=== PATIENT | female | born 1985 | race Caucasian/White ===

== ENCOUNTER 2018-08-23 11:53 | Inpatient (IN) | payer BC ==
[2018-08-23] MEDS ORDERED: Nalbuphine 20 MG/ML 1 ML Syringe IVPUSH PRN (12:20)
[2018-08-23] MEDS ORDERED: Sodium Chloride 0.9% 10 ML Syringe FLUSH PRN (12:20)
[2018-08-23] MEDS ORDERED: Oxytocin/Lactated Ringers 10 UNIT/1,000 ML BAG IV SCH ×2 (12:30)
[2018-08-23] MEDS: Lactated Ringers 1,000 ML IV SCH ×2 (13:35→18:15)
[2018-08-23] MEDS ORDERED: ePHEDrine 50 MG/ML SDV IVPUSH PRN (15:35)
[2018-08-23] MEDS ORDERED: Ondansetron 4 MG/2 ML SDV IVPUSH PRN (15:35)
--- NOTE | 2018-08-23 15:39 | PCM.PREANE ---
Preanesthetic Assessment - Anesthesia/Transfusion/Family Hx Anesthesia History: Prior Anesthesia Without Reaction Family History of Anesthesia Reaction: No Transfusion History: No Prior Transfusion(s) Intubation History: Unknown - Review of Systems General: No Symptoms Pulmonary: No Symptoms Cardiovascular: No Symptoms Gastrointestinal: No Symptoms Neurological: No Symptoms, Numbness (bilateral arms when sleeping with ) Other: Reports: None - Physical Assessment NPO Status Date: 08/23/18 NPO Status Time: 13:00 Pulse: 97 O2 Sat by Pulse Oximetry: 100 Respiratory Rate: 16 Blood Pressure: 133/77 Temperature: 36.8 C Vital Signs: Last Vital Signs Temp 36.8 C 08/23/18 12:20 Pulse 97 08/23/18 12:20 Resp 16 08/23/18 12:20 BP 133/77 08/23/18 12:20 Pulse Ox 100 08/23/18 12:20 Height: 1.63 m Weight: 101.151 kg ASA Class: 2 Mental Status: Alert & Oriented x3 Airway Class: Mallampati = 2 Dentition: Reports: Normal Dentition, Caries Thyro-Mental Finger Breadths: 3 Mouth Opening Finger Breadths: 3 ROM/Head Extension: Full Lungs: Clear to Auscultation, Normal Respiratory Effort Cardiovascular: Regular Rate, Regular Rhythm, No Murmurs - Lab Values: Laboratory Last Values WBC 12.99 K/mm3 (3.98-10.04) H 08/23/18 13:10 RBC 3.45 M/mm3 (3.98-5.22) L 08/23/18 13:10 Hgb 10.3 gm/L (11.2-15.7) L 08/23/18 13:10 Hct 30.5 % (34.1-44.9) L 08/23/18 13:10 MCV 88.4 fl (79.4-94.8) 08/23/18 13:10 MCH 29.9 pg (25.6-32.2) 08/23/18 13:10 MCHC 33.8 g/dl (32.2-35.5) 08/23/18 13:10 RDW Std Deviation 65.6 fL (36.4-46.3) H 08/23/18 13:10 Plt Count 222 K/mm3 (182-369) 08/23/18 13:10 MPV 9.3 fl (9.4-12.3) L 08/23/18 13:10 Neut % (Auto) 76.4 % (34.0-71.1) H 08/23/18 13:10 Lymph % (Auto) 14.6 % (19.3-51.7) L 08/23/18 13:10 [place] % (Auto) 7.2 % (4.7-12.5) 08/23/18 13:10 Eos % (Auto) 1.1 (0.7-5.8) 08/23/18 13:10 Baso % (Auto) 0.2 % (0.1-1.2) 08/23/18 13:10 Neut # (Auto) 9.92 K/mm3 (1.56-6.13) H 08/23/18 13:10 Lymph # (Auto) 1.90 K/mm3 (1.18-3.74) 08/23/18 13:10 [place] # (Auto) 0.93 K/mm3 (0.24-0.36) H 08/23/18 13:10 Eos # (Auto) 0.14 K/mm3 (0.04-0.36) 08/23/18 13:10 Baso # (Auto) 0.03 K/mm3 (0.01-0.08) 08/23/18 13:10 Manual Slide Review Normal smear 08/23/18 13:10 Above lab values reviewed and noted and within acceptable ranges to proceed with epidural of desired. 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 USE Smoking Status *Q: Never Smoker Tobacco Use Within Last Twelve Months: No Second Hand Smoke Exposure: No Recreational Drug Use History: No - CURRENT (IN HOUSE) MEDS Current Meds: Current Medications Lactated Ringer's (Ringers, Lactated) 1,000 mls @ 100 mls/hr IV ASDIRECTED MARCELINO Last Admin: 08/23/18 13:35 Dose: 100 mls/hr Oxytocin/Lactated Ringer's (Pitocin In Lr 10 Units/1,000 Ml) 10 unit in 1,000 mls @ 12 mls/hr IV TITRATE MARCELINO; Protocol Last Admin: 08/23/18 13:35 Dose: 2 munits/min, 12 mls/hr Oxytocin/Lactated Ringer's (Pitocin In Lr 10 Units/1,000 Ml) 10 unit in 1,000 mls @ 500 mls/hr IV .CONTINUOUS MARCELINO Nalbuphine HCl (Nubain) 10 mg IVPUSH Q2H PRN PRN Reason: pain Sodium Chloride (Saline Flush) 10 ml FLUSH ASDIRECTED PRN PRN Reason: Keep Vein Open
[2018-08-23] MEDS: Bupivacaine/fentaNYL/NS 100 ML Bag EPIDUR SCH ×2 (15:59→22:55)
[2018-08-23] MEDS: fentaNYL 100 MCG/2 ML SDV EPIDUR PRN (16:01)
[2018-08-24] MEDS: Oxytocin/Lactated Ringers 20 UNIT/1,000 ML BAG IV SCH ×2 (03:57→16:07)
--- NOTE | 2018-08-24 08:36 | PCM.SN ---
- Free Text/Narrative Note: 0800 called to room to assess epidural. Clamp at top of epidural tubing and medication bag tubing wet. Clamp switched out with a new one. Dressing on patients back removed and replaced with new dressing. Bolus of 10ml 0.25% bupivacaine PF given. VSS All done under sterile technique. Out of room at 0827.
[2018-08-24] MEDS: Lactated Ringers 1,000 ML IV SCH ×3 (08:37→13:14)
[2018-08-24] MEDS: Bupivacaine/fentaNYL/NS 100 ML Bag EPIDUR SCH (08:38)
[2018-08-24] MEDS ORDERED: Bupivacaine 0.25% 10 ML SDV ONE (09:00)
[2018-08-24] MEDS: fentaNYL 100 MCG/2 ML SDV EPIDUR PRN (12:36)
--- NOTE | 2018-08-24 12:42 | PCM.SN ---
- Free Text/Narrative Note: Called to patient room at 1220 complains of pain 10/10 bolus epidural with 2ml fentanyl 10 ml .25% bupivacaine PF VSS out of room at 1240
--- NOTE | 2018-08-24 16:32 | PCM.LDHP ---
L&D History of Present Illness - General Date of Service: 08/23/18 Admit Problem/Dx: Patient Status Order with Admit Dx/Problem 08/23/18 12:00 Patient Status [ADT] Routine Admission Diagnosis/Problem Admission Diagnosis/Problem Source of Information: Patient History Limitations: Reports: No Limitations - History of Present Illness Introduction:: 32 year old female here for SROM. Prior . 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: Social & Family History - Family History Family Medical History: Noncontributory - Tobacco Use Smoking Status *Q: Never Smoker Second Hand Smoke Exposure: No - Caffeine Use Caffeine Use: Reports: None - Recreational Drug Use Recreational Drug Use: No H&P Review of Systems - Review of Systems: Review Of Systems: See Below General: Reports: No Symptoms HEENT: Reports: No Symptoms Pulmonary: Reports: No Symptoms Cardiovascular: Reports: No Symptoms Gastrointestinal: Reports: No Symptoms Genitourinary: Reports: No Symptoms Musculoskeletal: Reports: No Symptoms Skin: Reports: No Symptoms Psychiatric: Reports: No Symptoms Neurological: Reports: No Symptoms Hematologic/Lymphatic: Reports: No Symptoms Immunologic: Reports: No Symptoms L&D Exam - Exam Exam: See Below - Vital Signs Vital Signs: Last Vital Signs Temp 36.8 C 08/23/18 15:49 Pulse 97 08/23/18 15:49 Resp 16 08/23/18 15:49 BP 133/77 08/23/18 15:49 Pulse Ox 100 08/23/18 15:49 Weight: 101.151 kg - OB Specific Contraction Intensity: Moderate Movement: Active Heart Tones: Present Heart Rate (FHR) Variability: Moderate (6-25 bmp) Presentation: Vertex - Yu Score Yu Score Cervix Position: Midposition Yu Score Consistency: Medium Yu Score Effacement: 51-70% Yu Score Dilation: 1-2 cm Yu Score 's Station: -1 ,0 Yu Score Total: 7 - Exam General: Alert, Oriented HEENT: PERRLA, Conjunctiva Clear, EACs Clear, EOMI, Hearing Intact, Mucosa Moist & [place], Nares Patent, Normal Nasal Septum, Posterior Pharynx Clear, TMs Clear Neck: Supple, Trachea Midline Lungs: Clear to Auscultation, Normal Respiratory Effort Cardiovascular: Regular Rate, Regular Rhythm GI/Abdominal Exam: Normal Bowel Sounds, Soft, Non-Tender, No Organomegaly, No Distention, No Abnormal Bruit, No Mass, Pelvis Stable Rectal Exam: Normal Exam, Normal Rectal Tone Genitourinary: Normal external exam, Normal bimanual exam, Normal speculum exam Back Exam: Normal Inspection, Full Range of Motion Extremities: Normal Inspection, Normal Range of Motion, Non-Tender, No Pedal Edema, Normal Capillary Refill Skin: Warm, Dry, Intact Neurological: Cranial Nerves Intact, Reflexes Equal Bilateral Psychiatric: Alert, Normal Affect, Normal Mood - Patient Data Lab Results Last 24 hrs: Laboratory Results - last 24 hr 08/23/18 08/23/18 Range/Units 13:10 13:10 RPR Non-reactive (NONREACTIVE) Blood Type O POSITIVE Gel Antibody Screen Negative Result Diagrams: 08/23/18 13:10 Problem List Initiated/Reviewed/Updated: Yes Orders Last 24hrs: Active Orders 24 hr Category Date Time Status Notify Provider [RC] ASDIRECTED Care 08/23/18 15:35 Active Oxygen Therapy [RC] ASDIRECTED Care 08/23/18 15:35 Active Pulse Oximetry [RC] ASDIRECTED Care 08/23/18 15:35 Active Bupivacaine/fentaNYL/NS [fentaNYL/Bupivacaine/NS 2 MCG- Med 08/23/18 15:45 Active 0.125% 100 ML] 100 ml EPIDUR ASDIRECTED Ondansetron [Zofran] Med 08/23/18 15:35 Active 4 mg IVPUSH ONETIME PRN Oxytocin/Lactated Ringers [Pitocin in LR 20 Units/1,000 Med 08/24/18 04:00 Active ML] 20 unit in 1,000 ml IV TITRATE ePHEDrine [ePHEDrine sulfate] Med 08/23/18 15:35 Active 5 mg IVPUSH ASDIRECTED PRN fentaNYL [Sublimaze] Med 08/23/18 15:35 Active 100 mcg EPIDUR Q3H PRN Medication Orders Ephedrine Sulfate (Ephedrine Sulfate) 5 mg IVPUSH ASDIRECTED PRN PRN Reason: Hypotension Fentanyl (Sublimaze) 100 mcg EPIDUR Q3H PRN PRN Reason: Pain Last Admin: 08/24/18 12:36 Dose: 100 mcg Admin: 08/23/18 16:01 Dose: 100 mcg Fentanyl/Bupivacaine HCl (Fentanyl/Bupivacaine/Ns 2 Mcg-0.125% 100 Ml) 100 ml EPIDUR ASDIRECTED MARCELINO Last Admin: 08/24/18 08:38 Dose: 100 ml Admin: 08/23/18 22:55 Dose: 100 ml Admin: 08/23/18 15:59 Dose: 100 ml Lactated Ringer's (Ringers, Lactated) 1,000 mls @ 100 mls/hr IV ASDIRECTED MARCELINO Last Admin: 08/24/18 13:14 Dose: 100 mls/hr Infusion: 08/24/18 13:14 Dose: 100 mls/hr Admin: 08/24/18 12:39 Dose: 100 mls/hr Infusion: 08/24/18 12:39 Dose: 100 mls/hr Admin: 08/24/18 08:37 Dose: 100 mls/hr Infusion: 08/24/18 04:15 Dose: 100 mls/hr Admin: 08/23/18 18:15 Dose: 100 mls/hr Infusion: 08/23/18 18:15 Dose: 100 mls/hr Admin: 08/23/18 13:35 Dose: 100 mls/hr Oxytocin/Lactated Ringer's (Pitocin In Lr 10 Units/1,000 Ml) 10 unit in 1,000 mls @ 12 mls/hr IV TITRATE MARCELINO; Protocol Last Titration: 08/24/18 03:15 Dose: 24 munits/min, 144 mls/hr Titration: 08/24/18 02:30 Dose: 22 munits/min, 132 mls/hr Titration: 08/24/18 02:00 Dose: 20 munits/min, 120 mls/hr Titration: 08/24/18 01:32 Dose: 18 munits/min, 108 mls/hr Titration: 08/24/18 00:00 Dose: 17 munits/min, 102 mls/hr Titration: 08/23/18 23:30 Dose: 16 munits/min, 96 mls/hr Titration: 08/23/18 22:56 Dose: 15 munits/min, 90 mls/hr Titration: 08/23/18 22:15 Dose: 14 munits/min, 84 mls/hr Titration: 08/23/18 21:30 Dose: 13 munits/min, 78 mls/hr Titration: 08/23/18 19:50 Dose: 11 munits/min, 66 mls/hr Titration: 08/23/18 19:09 Dose: 10 munits/min, 60 mls/hr Titration: 08/23/18 18:16 Dose: 8 munits/min, 48 mls/hr Titration: 08/23/18 17:30 Dose: 6 munits/min, 36 mls/hr Titration: 08/23/18 16:30 Dose: 4 munits/min, 24 mls/hr Admin: 08/23/18 13:35 Dose: 2 munits/min, 12 mls/hr Oxytocin/Lactated Ringer's (Pitocin In Lr 10 Units/1,000 Ml) 10 unit in 1,000 mls @ 500 mls/hr IV .CONTINUOUS MARCELINO Oxytocin/Lactated Ringer's (Pitocin In Lr 20 Units/1,000 Ml) 20 unit in 1,000 mls @ 60 mls/hr IV TITRATE MARCELINO; Protocol Last Admin: 08/24/18 03:57 Dose: 60 mls/hr Nalbuphine HCl (Nubain) 10 mg IVPUSH Q2H PRN PRN Reason: pain Ondansetron HCl (Zofran) 4 mg IVPUSH ONETIME PRN PRN Reason: Nausea/Vomiting Last Admin: 08/24/18 10:12 Dose: 4 mg Sodium Chloride (Saline Flush) 10 ml FLUSH ASDIRECTED PRN PRN Reason: Keep Vein Open Assessment/Plan Comment:: 32 year old female here for TOLAC Understands risk.
--- NOTE | 2018-08-24 16:34 | PCM.PNLD ---
Labor Progress Note - VS & Meds Vital Signs: Last Vital Signs Temp 36.8 C 08/23/18 15:49 Pulse 97 08/23/18 15:49 Resp 16 08/23/18 15:49 BP 133/77 08/23/18 15:49 Pulse Ox 100 08/23/18 15:49 Active Medications: Current Medications Ephedrine Sulfate (Ephedrine Sulfate) 5 mg IVPUSH ASDIRECTED PRN PRN Reason: Hypotension Fentanyl (Sublimaze) 100 mcg EPIDUR Q3H PRN PRN Reason: Pain Last Admin: 08/24/18 12:36 Dose: 100 mcg Fentanyl/Bupivacaine HCl (Fentanyl/Bupivacaine/Ns 2 Mcg-0.125% 100 Ml) 100 ml EPIDUR ASDIRECTED MARCELINO Last Admin: 08/24/18 08:38 Dose: 100 ml Lactated Ringer's (Ringers, Lactated) 1,000 mls @ 100 mls/hr IV ASDIRECTED MARCELINO Last Admin: 08/24/18 13:14 Dose: 100 mls/hr Oxytocin/Lactated Ringer's (Pitocin In Lr 10 Units/1,000 Ml) 10 unit in 1,000 mls @ 12 mls/hr IV TITRATE MARCELINO; Protocol Last Titration: 08/24/18 03:15 Dose: 24 munits/min, 144 mls/hr Oxytocin/Lactated Ringer's (Pitocin In Lr 10 Units/1,000 Ml) 10 unit in 1,000 mls @ 500 mls/hr IV .CONTINUOUS MARCELINO Oxytocin/Lactated Ringer's (Pitocin In Lr 20 Units/1,000 Ml) 20 unit in 1,000 mls @ 60 mls/hr IV TITRATE MARCELINO; Protocol Last Admin: 08/24/18 03:57 Dose: 60 mls/hr Nalbuphine HCl (Nubain) 10 mg IVPUSH Q2H PRN PRN Reason: pain Ondansetron HCl (Zofran) 4 mg IVPUSH ONETIME PRN PRN Reason: Nausea/Vomiting Last Admin: 08/24/18 10:12 Dose: 4 mg Sodium Chloride (Saline Flush) 10 ml FLUSH ASDIRECTED PRN PRN Reason: Keep Vein Open Discontinued Medications Oxytocin 20 unit/ Lactated (Ringer's) 1,002 mls @ 60.12 mls/hr IV TITRATE MARCELINO; Protocol - Uterine Contractions Contraction Intensity: Moderate to Strong - Monitoring Heart Rate (FHR) Variability: Moderate (6-25 bmp) Strip Review: Category I - Vaginal Exam Dilation (cm): 4 Effacement (Percent): 100 Station: -2 Cervical Position: Midposition - Labor Progress (Free Text) Labor Progress: Progressing well
--- NOTE | 2018-08-24 16:44 | PCM.SN ---
- Free Text/Narrative Note: Stage I - Patient presented with SROM. Progressed to complete with pitocin augmentation. Epidural anesthesia Stage II - of viable male, 4//8 APGARS at 1605. Head in controlled manner over intact perineum, body and shoulders atraumatically, tight nuchal cord. To maternal abdomen briefly, cord clamped and cut. Baby to warmer. Stage III - of intact placenta. 3vc. EBL 300
[2018-08-24] MEDS ORDERED: Lanolin 100% Cream 7 GM Tube TOP PRN (17:08)
[2018-08-24] MEDS ORDERED: Docusate Sodium 100 MG Cap PO PRN (17:08)
[2018-08-24] MEDS ORDERED: Witch Hazel Medicated Pads 40/Jar TOP PRN (17:08)
[2018-08-24] MEDS ORDERED: Benzocaine/Menthol 20%-0.5% Spray 56 GM Canister TOP PRN (17:08)
[2018-08-24] MEDS: Ibuprofen 600 MG Tab PO PRN (18:19)
[2018-08-25] MEDS: Ibuprofen 600 MG Tab PO PRN ×3 (03:50→19:05)
[2018-08-26] MEDS: Ibuprofen 600 MG Tab PO PRN ×2 (04:38→11:00)
--- NOTE | 2018-08-26 06:21 | PCM.SN ---
- Free Text/Narrative Note: note: Dictated on 08/26/2018 for 08/25/2018. Decision was made late that patient would stay overnight because of baby's hyperbilirubinemia concerns. Patient is doing well in the period. Minimal lochia, voiding well, ambulated without problems. Nursing without concerns. Patient is afebrile, vital signs are stable Abdomen is flat, soft, uterus is below the umbilicus and is firm and nontender. Legs are nontender. Assessment: recovery going well. Plan: Routine care. Patient to be discharged home on 08/27/1999.
--- NOTE | 2018-08-26 06:25 | PCM.DCSUM1 ---
Discharge Summary - Hospital Course Free Text/Narrative:: Mouna was admitted in active labor progressed to complete dilation and delivered on 08/24/2018. Stage I - Patient presented with SROM. Progressed to complete with pitocin augmentation. Epidural anesthesia Stage II - of viable male, 4/7/8 APGARS at 1605. Head in controlled manner over intact perineum, body and shoulders atraumatically, tight nuchal cord. To maternal abdomen briefly, cord clamped and cut. Baby to warmer. Stage III - of intact placenta. 3vc. EBL 300 patient is done well. She is desiring discharge home. Baby has hyperbilirubinemia and is under the bili lights. The staying for extended therapy. Diagnosis: Stroke: No - Discharge Data Discharge Date: 08/26/18 Discharge Disposition: Home, Self-Care 01 Condition: Good - Patient Instructions Diet: Regular Diet as Tolerated (Nursing diet with increase calories and calcium is recommended) Activity: As Tolerated (No intercourse or tampons until bleeding resolves) Driving: May Drive Today Showering/Bathing: May Shower (May take a bath) Notify Provider of: Fever, Increased Pain, Swelling and Redness, Nausea and/or Vomiting - Discharge Plan Home Medications: Home Meds Ibuprofen [Motrin] 600 mg PO Q6H PRN tablet 08/26/18 [Rx] Patient Handouts: Home Care Instructions for Mom Referrals: Carissa Gerard MD [Primary Care Provider] - (Return to clinicAK4- 6 weeks.) - Discharge Summary/Plan Comment DC Time >30 min.: No Discharge Summary/Plan Comment: Discharge instructions: 1. Discharge home 2. Diet, activity and follow-up discussed with patient. Recommend nursing diet with increased calories and calcium. 3. Precautions given concern increased pain, bleeding, temperature, signs/ symptoms of DVT/PE. 4. Medications per home medication was printed, discussed with and given to the patient. 5. Return to clinic-Dr. [facility]-4-6 weeks. Diagnosis: Term -delivered Condition: Good - Patient Data Vitals - Most Recent: Last Vital Signs Temp 36.8 C 08/26/18 04:37 Pulse 81 08/26/18 04:37 Resp 14 08/26/18 04:37 BP 128/72 08/26/18 04:37 Pulse Ox 98 06/02/19 04:37 Weight - Most Recent: 101.151 kg I&O - Last 24 hours: Intake & Output 08/25/18 08/25/18 08/26/18 14:59 22:59 06:59 Intake Total 320 400 Balance 320 400 Med Orders - Current: Current Medications Benzocaine/Menthol (Dermoplast Pain Relief [place]) 0 gm TOP ASDIRECTED PRN PRN Reason: Perineal Comfort Measure Last Admin: 08/24/18 18:19 Dose: 1 can Docusate Sodium (Colace) 100 mg PO BID PRN PRN Reason: Constipation Last Admin: 08/25/18 11:06 Dose: 100 mg Emollient Ointment (Lansinoh Hpa) 0 gm TOP ASDIRECTED PRN PRN Reason: Sore Nipples Ibuprofen (Motrin) 600 mg PO Q6H PRN PRN Reason: Mild pain or fever Last Admin: 08/26/18 04:38 Dose: 600 mg Witch Ana (Tucks) 1 pad TOP ASDIRECTED PRN PRN Reason: Pain Last Admin: 08/24/18 18:20 Dose: 1 tub Discontinued Medications Ephedrine Sulfate (Ephedrine Sulfate) 5 mg IVPUSH ASDIRECTED PRN PRN Reason: Hypotension Fentanyl (Sublimaze) 100 mcg EPIDUR Q3H PRN PRN Reason: Pain Last Admin: 08/24/18 12:36 Dose: 100 mcg Fentanyl/Bupivacaine HCl (Fentanyl/Bupivacaine/Ns 2 Mcg-0.125% 100 Ml) 100 ml EPIDUR ASDIRECTED MARCELINO Last Admin: 08/24/18 08:38 Dose: 100 ml Lactated Ringer's (Ringers, Lactated) 1,000 mls @ 100 mls/hr IV ASDIRECTED MARCELINO Last Admin: 08/24/18 13:14 Dose: 100 mls/hr Oxytocin/Lactated Ringer's (Pitocin In Lr 10 Units/1,000 Ml) 10 unit in 1,000 mls @ 12 mls/hr IV TITRATE MARCELINO; Protocol Last Titration: 08/24/18 03:15 Dose: 24 munits/min, 144 mls/hr Oxytocin/Lactated Ringer's (Pitocin In Lr 10 Units/1,000 Ml) 10 unit in 1,000 mls @ 500 mls/hr IV .CONTINUOUS MARCELINO Oxytocin 20 unit/ Lactated (Ringer's) 1,002 mls @ 60.12 mls/hr IV TITRATE MARCELINO; Protocol Oxytocin/Lactated Ringer's (Pitocin In Lr 20 Units/1,000 Ml) 20 unit in 1,000 mls @ 60 mls/hr IV TITRATE MARCELINO; Protocol Last Admin: 08/24/18 16:07 Dose: 500 mls/hr Nalbuphine HCl (Nubain) 10 mg IVPUSH Q2H PRN PRN Reason: pain Ondansetron HCl (Zofran) 4 mg IVPUSH ONETIME PRN PRN Reason: Nausea/Vomiting Last Admin: 08/24/18 10:12 Dose: 4 mg Sodium Chloride (Saline Flush) 10 ml FLUSH ASDIRECTED PRN PRN Reason: Keep Vein Open
== END 2018-08-26 11:15 | disposition home or self-care (01) | DRG 560 ==
LOC: JD.OB 11:53 → OBSVTOIN 08-24 16:05 → JD.OB 08-24 16:06 → INTOOBSV 08-24 16:34 → OBSVTOIN 08-24 16:34
PROVIDERS: ADMIT Obstetrics & Gynecology; ATTEND Obstetrics & Gynecology
PROC: 00HU33Z Insertion of Infusion Device into Spinal Canal, Percutaneous Approach (ICD-10-PCS; 2018-08-23)
PROC: 3E0R3BZ Introduction of Anesthetic Agent into Spinal Canal, Percutaneous Approach (ICD-10-PCS; 2018-08-23)
PROC: 10E0XZZ Delivery of Products of Conception, External Approach (ICD-10-PCS; principal; 2018-08-24)
DX: O34.219 Maternal care for unspecified type scar from previous cesarean delivery (principal); O69.1XX0 Labor and delivery complicated by cord around neck, with compression, not applicable or unspecified; Z37.0 Single live birth; N85.8 Other specified noninflammatory disorders of uterus; Z3A.38 38 weeks gestation of pregnancy
CPT/HCPCS: 36415; 51702; 59025; 59409; 85025; 86592; 86850; 86900; 86901; A9270-GY; J2405; J2590; J3010; J3490; J7120